=== PATIENT | female | born 1990 | race Caucasian/White ===

== ENCOUNTER → 2019-04-12 | Emergency (ER) | payer OTHER ==
[~2019-04-12] VITALS: Ht 167.6 cm; Wt 54.4 kg
--- NOTE | 2019-04-12 05:37 | NUR ---
bibs for c/o RLE numbness x 5dys and pain x 1day. no other complaint. no PMH. no recent trauma or injury.
--- NOTE | 2019-04-12 06:19 | NUR ---
RADIOLOGY WS CALLED FOR VENOUS DUPLEX
[2019-04-12 06:35] LABS: BASOPHILS % (AUTO) 0.8 % (0.0-2.0); EOSINOPHILS % (AUTO) 1.6 % (0.0-6.0); HEMATOCRIT 43 % (33-45); HEMOGLOBIN 14.6 g/dL (11.5-14.8); LYMPHOCYTES % (AUTO) 45.5 % (20.0-44.0); MEAN CORPUSCULAR HGB CONC 34 g/dl (31.0-36.0); MEAN CORPUSCULAR VOLUME 89 fL (82-100); MONOCYTES # (AUTO) 0.4 /CMM (0.1-1.30); MONOCYTES % (AUTO) 7.9 % (2.0-12.0); NEUTROPHILS % (AUTO) 44.2 % (43.0-81.0); PLATELET COUNT (AUTO) 221 /CMM (150-450); WHITE BLOOD COUNT (AUTO) 4.4 K/uL (4.3-11.0)
[2019-04-12 06:42] LABS: CREATININE 0.9 mg/dL (0.6-1.3); POTASSIUM 3.7 mmol/L (3.5-5.1)
--- NOTE | 2019-04-12 07:20 | NUR ---
US TECH AT THE BED SIDE
--- NOTE | 2019-04-12 07:30 | NUR ---
RN NOTES DISCHARG INSTRUCTION GIVEN TO PT , VERBELIZES UNDERSTANDING , PT LEFT THE ER AMBULATORY IN STABLE CONDITION .
[2019-04-12 07:52] VITALS: BP 128/79
== END | disposition home or self-care (01) ==
LOC: ER 05:17
DX: M79.604 Pain in right leg (principal)
CPT/HCPCS: 36415; 80048; 82550; 85025; 93971; 99284; A6402